=== PATIENT | male | born 1980 | race Caucasian/White ===

== ENCOUNTER 2019-09-28 05:07 | Emergency (ER) | payer SELFPAY ==
[~2019-09-28] VITALS: Ht 170.2 cm; Wt 77.1 kg
[2019-09-28 05:10] VITALS: BP 109/90
--- NOTE | 2019-09-28 05:16 | NUR ---
PT AMBULATED TO BED 11 WITH STEADY GAIT.
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
[2019-09-28] MEDS ORDERED: LIDOCAINE 2% 1000 MG/50 ML VIAL INJ ONE (05:25)
[2019-09-28] MEDS ORDERED: KETOROLAC 60 MG/2 ML VIAL IM ONE (05:25)
--- NOTE | 2019-09-28 05:46 | NUR ---
ERMD AT BEDSIDE PERFORMING LAC PROCEDURE.
[2019-09-28] MEDS ORDERED: SULFAMETH/TRIMETH DS 800/160MG 1 TAB PO ONE (05:50)
[2019-09-28] MEDS ORDERED: CIPROFLOXACIN 0.3% OP 2.5 ML BTL OP ONE (05:50)
[2019-09-28] MEDS ORDERED: GENTAMICIN OP 0.3% 15 MG/5 ML BTL ONE (05:56)
--- NOTE | 2019-09-28 05:58 | NUR ---
GENTAMICIN EYE DROP APPLIED ON RT EYE. BACTRIM ADMINISTERED TO PT VIA PO. TOLERATED WELL. NADR
[2019-09-28] MEDS ORDERED: GENTAMICIN OP 0.3% 15 MG/5 ML BTL OP ONE (06:00)
--- NOTE | 2019-09-28 06:01 | NUR ---
PT TAKEN TO CT VIA W/C
--- NOTE | 2019-09-28 06:04 | NUR ---
PT RETURNED FROM CT VIA W/C
[2019-09-28 06:44] VITALS: BP 109/90
--- NOTE | 2019-09-28 06:44 | NUR ---
Patient discharged with v/s stable. Written and verbal after care instructions given and explained. Patient alert, oriented and verbalized understanding of instructions. Ambulatory with steady gait. All questions addressed prior to discharge. ID band removed. Patient advised to follow up with PMD. Rx of BACTRIM, MOTRIN, GENTAMICIN given. Patient educated on indication of medication including possible reaction and side effects. Opportunity to ask questions provided and answered. Addendum: 09/28/19 at 0644 by [facility] PT GIVEN B[employer]BALL [employer] SEWER REFERRAL.
== END 2019-09-28 06:44 | disposition home or self-care (01) ==
LOC: MED 05:07
DX: S01.111A Laceration without foreign body of right eyelid and periocular area, initial encounter (principal); S32.47 Fracture of medial wall of acetabulum; W22.8XXA Striking against or struck by other objects, initial encounter; Y93.89 Activity, other specified; Y99.8 Other external cause status; Y92.89 Other specified places as the place of occurrence of the external cause
CPT/HCPCS: 12011; 70480; 96372; 99284; J1885; J2001

== ENCOUNTER 2020-08-02 22:21 | Emergency (ER) | payer SELFPAY ==
[~2020-08-02] VITALS: Ht 170.2 cm; Wt 81.6 kg
[2020-08-02 22:22] VITALS: BP 120/76
--- NOTE | 2020-08-02 22:22 | NUR ---
TO BED AMBULATORY
--- NOTE | 2020-08-02 22:36 | NUR ---
PT AMB TO THE BATHROOM
--- NOTE | 2020-08-02 22:57 | NUR ---
PT BACK FROM BATHROOM
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
--- NOTE | 2020-08-02 23:19 | NUR ---
Dr. Nuñez examining patient.
[2020-08-02] MEDS ORDERED: IBUP-2213 PO (23:33)
[2020-08-02 23:50] VITALS: BP 120/76
== END 2020-08-02 23:50 | disposition home or self-care (01) ==
LOC: MED 22:21
DX: S01.01XA Laceration without foreign body of scalp, initial encounter (principal); X58.XXXA Exposure to other specified factors, initial encounter; Y93.89 Activity, other specified; Y92.89 Other specified places as the place of occurrence of the external cause; Y99.8 Other external cause status
CPT/HCPCS: 12001; 90471; 90715; 99283